=== PATIENT | female | born 1995 | race Asian ===

== ENCOUNTER → 2017-04-20 02:27 | Emergency (ER) | payer OTHER ==
[~2017-04-20 02:27] MED LIST: Azithromycin TAB* 250 MG PO ONE; Norgestrel/Ethinyl Estrad TAB* 0.5 MG/0.05 MG PO ONE; cefTRIAXone VIAL(*) 1,000 MG VIAL IM ONE; cefTRIAXone VIAL(*) 250 MG VIAL IM ONE
[2017-04-20 02:45] VITALS: BP 117/77
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
== END | disposition home or self-care (01) ==
LOC: ED 02:27
DX: T14.8 Other injury of unspecified body region (principal); T74.21XA Adult sexual abuse, confirmed, initial encounter; Y93.9 Activity, unspecified; Y92.9 Unspecified place or not applicable
CPT/HCPCS: 36415; 84702; 86703; 86707; 86803; 99284; A9270-GY; J0696